=== PATIENT | male | born 1980 | race Caucasian/White ===

== ENCOUNTER 2020-06-09 13:52 | Emergency (ER) | payer SELFPAY ==
[~2020-06-09] VITALS: Ht 188 cm; Wt 85.3 kg
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
--- NOTE | 2020-06-09 15:07 | Diagnostic Imaging Report ---
EXAMINATION: HAND 3+ VIEWS RIGHT INDICATION: Hand pain COMPARISON: None FINDINGS: AP, lateral, and oblique radiographs of the right hand demonstrate a mildly displaced and mildly impacted fracture of the head of the fifth metacarpal. Mild overlying soft tissue swelling. No additional fractures identified. No substantial degenerative change. IMPRESSION: Mildly displaced and mildly impacted acute fracture of the head of the fifth metacarpal. Signed by: Jonas Paul MD on 06/09/2020 3:04 PM
[2020-06-09 16:01] VITALS: BP 98/78
== END 2020-06-09 16:03 | disposition home or self-care (01) ==
LOC: ER 14:02
DX: S62.326A Displaced fracture of shaft of fifth metacarpal bone, right hand, initial encounter for closed fracture (principal); Y04.0XXA Assault by unarmed brawl or fight, initial encounter; Y92.89 Other specified places as the place of occurrence of the external cause
CPT/HCPCS: 99283